=== PATIENT | female | born 1985 | race Caucasian/White ===

== ENCOUNTER 2016-07-15 12:37 | Emergency (ER) | payer BC, OTHER ==
[2016-07-15 12:46] VITALS: BP 138/83; PULSE 70; TEMP 98.2; BMI 27.4
[2016-07-15] MEDS ORDERED: IBUPROFEN 600 MG TABLET (FP) PO ONE ×2 (13:16→13:17)
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
== END 2016-07-15 13:22 | disposition home or self-care (01) ==
LOC: JERFT 12:37
DX: L55.1 Sunburn of second degree (principal); J45.909 Unspecified asthma, uncomplicated
CPT/HCPCS: 99281-25